=== PATIENT | female | born 1960 | race Caucasian/White ===

== ENCOUNTER → 2017-02-26 | Outpatient (CLI) | payer BC ==
[~2017-02-26] MED LIST: CALC-5 PO; CALCTAB5 PO; NAPR1TAB9 PO
--- NOTE | 2017-02-26 10:44 | DIAGNOSTIC IMAGING REPORT ---
KNEE 4 OR MORE VIEWS CLINICAL HISTORY: KNEE Effusion, left pain COMPARISON: None. DISCUSSION: Moderate degenerative change medial joint compartment left knee. No significant joint effusion. Patellofemoral joint is intact. Lateral joint compartments are unremarkable. There is no evidence for soft tissue swelling. IMPRESSION: Mild/moderate degenerative narrowing medial joint compartment left knee. Otherwise negative study Electronically signed by: Geoff Negron M.D. 02/26/2017 10:42 AM Dictated Date/Time: 02/26/2017 10:41 AM
== END | disposition home or self-care (01) ==
LOC: C.RAD 10:11
PROVIDERS: ATTEND Family Medicine
DX: M25.562 Pain in left knee (principal); M25.462 Effusion, left knee

== ENCOUNTER → 2017-06-11 | Outpatient (CLI) | payer BC ==
--- NOTE | 2017-06-11 12:48 | MAMMOGRAPHY REPORT ---
BILATERAL DIGITAL SCREENING MAMMOGRAM TOMOSYNTHESIS WITH CAD: 06/11/2017 CLINICAL HISTORY: Routine screening. Patient has no complaints. TECHNIQUE: Breast tomosynthesis in addition to standard 2D mammography was performed. Current study was also evaluated with a Computer Aided Detection (CAD) system. COMPARISON: Comparison is made to exams dated: 06/09/2016 mammogram, 06/05/2015 mammogram, 05/05/2014 ma mmogram, 04/26/2013 mammogram, 04/23/2012 mammogram, and 04/22/2011 mammogram - [facility] nter. BREAST COMPOSITION: The tissue of both breasts is almost entirely fatty. FINDINGS: No suspicious masses, calcifications, or areas of architectural distortion are noted in ei ther breast. There has been no significant interval change compared to prior exams. Again noted is a biopsy marker clip in the left 12:00 breast. IMPRESSION: ACR BI-RADS CATEGORY 2: BENIGN There is no mammographic evidence of malignancy. A 1 year screening mammogram is recommended. The pa tient will receive written notification of the results. Approximately 10% of breast cancers are not detected with mammography. A negative mammographic report should not delay biopsy if a clinically suggestive mass is present. Alexandria Ames M.D. /:06/11/2017 12:27:35 Mechanical Applications Engineer: Tsering Alvarez M, [facility] letter sent: Normal 1/2 BI-RADS Code: ACR BI-RADS Category 2: Benign
== END | disposition home or self-care (01) ==
LOC: C.MAMM 10:59
PROVIDERS: ATTEND Obstetrics & Gynecology
DX: Z12.31 Encounter for screening mammogram for malignant neoplasm of breast (principal)

== ENCOUNTER → 2018-06-14 | Outpatient (CLI) | payer OTHER ==
--- NOTE | 2018-06-15 14:43 | MAMMOGRAPHY REPORT ---
BILATERAL DIGITAL SCREENING MAMMOGRAM TOMOSYNTHESIS WITH CAD: 06/14/2018 CLINICAL HISTORY: Routine screening. Patient has no complaints. TECHNIQUE: The study was acquired using full field digital technology and interpreted from soft copy. Breast tomosynthesis in addition to standard 2D mammography was performed. Current study was also ev aluated with a Computer Aided Detection (CAD) system. COMPARISON: Comparison is made to exams dated: 06/11/2017 mammogram, 06/09/2016 mammogram, 06/05/2015 [facility] mogram, 04/26/2013 mammogram, 05/05/2014 mammogram, and 04/22/2011 mammogram - [facility]. BREAST COMPOSITION: The tissue of both breasts is almost entirely fatty. FINDINGS: There is a stable randi-shaped biopsy marker clip in the 12:00 to 1:00 anterior left breast. No suspicious mass, architectural distortion or cluster of microcalcifications is seen. IMPRESSION: ACR BI-RADS CATEGORY 1: NEGATIVE There is no mammographic evidence of malignancy. A 1 year screening mammogram is recommended.( [id number]) The patient will receive written notification of the results. Some breast cancers are not detected with mammography. A negative mammographic report should not lino y biopsy if a clinically suggestive mass is present. Tamika Malik M.D. ay/:06/14/2018 15:58:56 Food And Nutrition Services Assistant: RT Ratna(R)(M), [facility] letter sent: Normal 1/2 BI-RADS Code: ACR BI-RADS Category 1: Negative
== END | disposition home or self-care (01) ==
LOC: C.MAMM 10:47
PROVIDERS: ATTEND Obstetrics & Gynecology
DX: Z12.31 Encounter for screening mammogram for malignant neoplasm of breast (principal)